=== PATIENT | male | born 1965 | race African-American/Black ===

== ENCOUNTER 2017-07-02 05:27 | Inpatient (IN) | payer OTHER ==
[~2017-07-02] VITALS: Ht 172.7 cm; Wt 84.5 kg
[~2017-07-02 05:27] MED LIST: BUPROPION XL300 MG PO; CITALOPRAM HBR20 MG PO; CYMBALTA30 MG PO; CYMBALTA60 MG PO; DESYREL 150 MG150 MG PO; GABAPENTIN300 MG PO; LAMICTAL25 MG PO; MIRTAZAPINE15 MG PO; MIRTAZAPINE30 MG PO; NEURONTIN300 MG PO; QUETIAPINE FUM100 MG PO; QUETIAPINE FUM200 MG PO; REMERON15 M2 PO; RISPERIDONE2 MG PO; SEROQUEL200 MG PO; TRAZODONE HCL100 MG PO; TRAZODONE HCL150 MG PO; VALTREX1000 MG PO; WELLBUTRIN XL300 MG PO; WELLBUTRIN75 MG PO
[2017-07-02 06:12] LABS: THC CANNABINOIDS NEGATIVE (50 ng/mL)
[2017-07-02 06:13] LABS: AMPHETAMINE NEGATIVE (500 ng/mL); BARBITURATES NEGATIVE (200 ng/mL); BENZODIAZEPINES NEGATIVE (150 ng/mL); BUPRENORPHINE NEGATIVE (10 ng/mL); COCAINE PRESUMPTIVE POSITIVE (150 ng/mL); METHADONE NEGATIVE (200 ng/mL); METHAMPHETAMINE NEGATIVE (500 ng/mL); OPIATES (MORPHINE) NEGATIVE (100 ng/mL); OXYCODONE NEGATIVE (100 ng/mL); PHENCYCLIDINE NEGATIVE (25 ng/mL); PROPOXYPHENE NEGATIVE (300 ng/mL); TRICYCLIC ANTIDEPRESSANTS NEGATIVE (300 ng/mL)
[2017-07-02 06:39] LABS: HEMOGLOBIN 14.3 G/DL (12.5-16.6); MCH 31.2 PG (29.0-34.0); MCV 91.7 FL (86-99); PLATELET COUNT 362 K/uL (156-360); RBC DIS.WIDTH-CV 14.2 % (11.8-14.6); RED BLOOD COUNT 4.58 M/uL (4.00-5.50); WHITE BLOOD COUNT 17.8 K/uL (4.1-10.2)
[2017-07-02 06:45] LABS: CHLORIDE 107 mEq/L (99-109); POTASSIUM 4.1 mEq/L (3.7-5.4); SODIUM 141 mEq/L (136-147)
[2017-07-02 06:46] LABS: GLUCOSE 83 mg/dL (70-99)
[2017-07-02 06:50] LABS: CREATININE 1.5 mg/dL (0.6-1.3); GFR ESTIMATE (CALCULATED) > 59 mL/min/ (58.99-99999); SERUM ETHYL ALCOHOL 18 mg/dL
[2017-07-02 06:52] LABS: UREA NITROGEN (BUN) 21 mg/dL (9-23)
[2017-07-02 06:53] LABS: SALICYLATE < 5.0 MG/DL (15-30)
[2017-07-02 06:54] LABS: ACETAMINOPHEN (TYLENOL) < 10 mcg/mL (10-30)
[2017-07-02 13:02] VITALS: BP 147/92
[2017-07-03 07:33] VITALS: BP 141/71
== END 2017-07-03 13:17 | disposition home or self-care (01) | DRG 881 ==
LOC: EME → EDBD 05:27 → EDOF 10:50 → 1WEST 10:50 → EDOF 11:42 → ENRESERV 12:47 → 1WEST 12:54
PROVIDERS: Emergency Medicine
DX: F34.1 Dysthymic disorder (principal); F14.20 Cocaine dependence, uncomplicated; F10.129 Alcohol abuse with intoxication, unspecified; Y90.0 Blood alcohol level of less than 20 mg/100 ml; G47.9 Sleep disorder, unspecified; F41.9 Anxiety disorder, unspecified; J45.909 Unspecified asthma, uncomplicated; G43.909 Migraine, unspecified, not intractable, without status migrainosus; R01.1 Cardiac murmur, unspecified; F17.210 Nicotine dependence, cigarettes, uncomplicated; Z81.8 Family history of other mental and behavioral disorders
CPT/HCPCS: 80048; 84999; 85027; 90837; 99281; 99285; G0480